=== PATIENT | male | born 1975 | race Caucasian/White ===

== ENCOUNTER 2018-05-20 19:21 | Inpatient (IN) ==
[2018-05-20 20:59] LABS: BASO# 0.04 X1000 (0.0-0.2); BASO% 0.3 % (0.0-0.8); EOS# 0.11 X1000 (0.0-0.7); EOS% 0.8 % (0.0-10.0); HEMATOCRIT 43.8 % (42.0-52.0); IMM GRAN# 0.03 X1000 (0.0-0.04); IMM GRAN% 0.2 % (0.0-0.5); MCH 32.6 PG (27-31); MCHC 34.2 g/dL (33-37); MCV 95.2 FL (81-99); MONO# 0.78 X1000 (0.11-0.59); MONO% 5.9 % (1.7-9.3); MPV 9.8 FL (7.4-10.4); NEUT# 11.17 X1000 (1.4-6.5); NEUT% 83.8 % (42.2-75.2); PLT 274 X1000 (130-400); RDW 12.7 % (11.5-14.5); WBC 13.33 X1000 (4.8-10.8)
[2018-05-20] MEDS ORDERED: ZOFRAN IV ONE (21:00)
[2018-05-20] MEDS ORDERED: DILAUDID IV ONE ×2 (21:00→21:58)
[2018-05-20 21:02] LABS: BILIRUBIN URINE NEGATIVE (NEGATIVE); BLOOD URINE TRACE (NEGATIVE); CLARITY CLEAR (CLEAR); COLOR YELLOW; GLUCOSE URINE NEGATIVE (NEGATIVE); KETONE URINE 3+(Large) mg/dL (NEGATIVE); LEUKOCYTES URINE TRACE (NEGATIVE); NITRITE URINE NEGATIVE (NEGATIVE); PROTEIN URINE NEGATIVE (NEGATIVE); SP GRAVITY URINE 1.015; URINE SOURCE CLEAN CATCH; UROBILINOGEN URINE 1 mg/dL
[2018-05-20 21:07] LABS: URINE BACTERIA NEGATIVE /HFP; URINE CAST NONE SEEN /LPF; URINE CRYSTAL NONE SEEN /HPF; URINE EPITHELIAL CELLS <10 /HPF (<10); URINE RBC <10 /HPF (<10); URINE SMALL ROUND CELLS TRANSITIONAL PRESENT; URINE WBC <10 /HPF (<10); URINE YEAST NONE SEEN /HPF
[2018-05-20 21:26] LABS: AGAP 14; ALBUMIN 4.5 g/dL (3.5-5.0); ALKALINE PHOSPHATASE 67 U/L (32-122); BUN 18 mg/dL (8-22); CALCIUM 9.1 mg/dL (8.8-10.2); CHLORIDE 102 mmol/L (98-107); COSMO 282; CREATININE 0.8 mg/dL (0.7-1.2); ESTIMATED GFR > 60; GLUCOSE 147 mg/dL (70-104); GOT 19 U/L (10-34); GPT 22 U/L (10-44); LIPASE 27 U/L (13-60); POTASSIUM 3.8 mmol/L (3.5-5.1); SODIUM 139 mmol/L (136-145); TCO2 23 mmol/L (25-35); TOTAL PROTEIN 7.7 g/dL (6.3-8.3)
[2018-05-20] MEDS ORDERED: ZOSYN 3.375 GM in NS 50 ML IV ONE (22:14)
--- NOTE | 2018-05-20 22:14 | Diag Imaging Result Doc PS360 ---
CT ABD/PELVIS W/IV CONT ONLY - 05/20/2018 INDICATION: nausea,vomiting, diarrhea COMPARISON: None FINDINGS: The lung bases are clear and the heart size is normal. The vermiform appendix is extremely dilated and fluid-filled and there are some appendicoliths at the mouth of the appendix. There is some surrounding inflammation. No free air or free fluid. No bowel obstruction. There are small cysts in the liver and both kidneys. Otherwise abdominal organs are all normal. Urinary bladder, prostate, and rectum are normal. IMPRESSION: Acute appendicitis. This report was discussed with Dr. Myers on 05/20/2018 at 10:10 PM and was readback. This exam was performed using automated exposure control, adjustment of mA or kV according to patient size, and/or use of iterative reconstruction technique Electronically signed by Alex Alfonso 05/20/2018 10:12 PM
[2018-05-20] MEDS ORDERED: NS 1,000 ML IV ONE (22:16)
--- NOTE | 2018-05-20 22:22 | PROVIDER DOCUMENTATION ---
This chart was entered by Jessica Leary Scribe, acting as scribe for James Myers MD. HPI-Abdominal Pain/GI Problem - General Chief Complaint: Abdominal Pain Stated Complaint: N/V, ABD PAIN Time Seen by Provider: 05/20/18 20:59 Source: patient Allergies/Adverse Reactions: Patient Allergies Allergy/AdvReac Type Severity Reaction Status Date / Time No Known Allergies Allergy Verified 05/20/18 20:53 Home Medications: Home Medication List Medication Instructions Recorded Confirmed Last Taken Type NK [No Home Medications] 05/20/18 05/20/18 Unknown History - History of Present Illness-ABD Nature of Presenting Problems: pt is a 43 yr old male presenting with diffuse abdominal pain onset 1400 today, pt also admits nausea, vomiting, denies diarrhea but does report several soft stools since pain onset. pt denies fever/chills, no one else in home sick Abdominal Pain Onset Location: reports: generalized abdomen Pain Radiation: reports: no radiation Quality of Pain: reports: sharp Severity in ED: reports: severe Onset/Duration: reports: this afternoon (1400) Timing: reports: still present Activities at Onset: reports: light activity Exposure to sick contacts?: No Modifying Factors: improves with: other medication (pepto bismal, tums- no relief) Associated Symptoms: reports: nausea, vomiting. denies: constipation, diarrhea, fever/chills Last BM: this evening Dark Stools Present?: reports: none noticed Rectal Bleeding: reports: none Rectal Pain: reports: none # of Vomiting Episodes: 5 Bruising or Bleeding Gums?: No Similar Symptoms Previously?: No Recently seen or treated by another doctor?: No Review of Systems - Adult - REVIEW OF SYSTEMS - ADULT Constitutional: denies: chills, fever Eyes: reports: no symptoms reported Ears, Nose, Mouth & Throat: reports: no symptoms reported Cardiovascular: denies: chest pain, palpitations, syncope Respiratory: denies: cough, shortness of breath Gastrointestinal: reports: abdominal pain, nausea, vomiting. denies: constipation, diarrhea Genitourinary: denies: dysuria, frequency, flank pain Musculoskeletal: denies: back pain, muscle aches, neck pain Integumentary: reports: no symptoms reported Neurological: denies: dizziness/vertigo, headache/migraines Psychiatric: reports: no symptoms reported Endocrine: reports: no symptoms reported Hematologic/Lymphatic: reports: no symptoms reported Allergic/Immunologic: reports: no symptoms reported All Other Systems: Reviewed and Negative Past History - Adult - PAST MEDICAL HISTORY-ADULT Review of Records: reports: Nursing Assessment Review, Medications Reviewed, Social history reviewed & non-contributory. Major Childhood Illnesses: reports: denies history Cardiovascular: reports: denies history Respiratory: reports: denies history Gastrointestinal: reports: denies history Obstetrical/Gynecological: reports: denies history Genitourinary: reports: denies history Musculoskeletal: reports: denies history Neurological: reports: denies history Endocrine/Immune: reports: denies history Other Conditions: reports: denies history - IMMUNIZATION STATUS Childhood Immunizations: See Nurse Assessment Flu Vaccine: See Nurse Assessment - FAMILY HISTORY Family History: reviewed, not pertinent - SOCIAL HISTORY Smoking: denies Substance Use: alcohol Alcohol Use Frequency: occasionally Living Situation: family Physical Exam-General - PHYSICAL EXAM-ADULT Initial Vital Signs Reviewed: Yes - CONSTITUTIONAL General Appearance: alert, moderate distress, other (pt obviously uncomfortable, shaking/twisting in bed, unable to lie still) - EYES Eyes: PERRL/EOMI - HEAD, EARS, NOSE, MOUTH & THROAT HENMT: normocephalic/atraumatic, moist mucous membranes, normal ENT inspection - NECK Neck: non-tender, full range of motion, supple, normal inspection - RESPIRATORY Respiratory: lungs clear, normal breath sounds - CARDIOVASCULAR Cardiovascular: normal peripheral pulses, regular rate, rhythm, no edema - GASTROINTESTINAL (ABDOMEN) Abdominal Exam: abnormal bowel sounds (decreased bowel sounds), tenderness (marked central abdominal tenderness) - LYMPHATIC Lymphatic: no adenopathy - MUSCULOSKELETAL Back Exam: normal inspection, no CVA tenderness, no vertebral tenderness Extremity: normal range of motion, non-tender, normal gait, normal inspection - SKIN Integumentary: normal color, normal turgor, warm/dry - NEUROLOGIC Neurologic: grossly normal, no motor/sensory deficits Progress - PLAN OF CARE/RESULTS Progress/Plan/Lab Results: Vital Signs - 8 hr 05/20/18 19:26 Temperature 97.1 F L Pulse Rate 69 Respiratory Rate 16 Blood Pressure 138/79 O2 Sat by Pulse Oximetry 100 Laboratory Results - last 24 hr 05/20/18 05/20/18 20:32 20:37 WBC 13.33 H RBC 4.60 L Hgb 15.0 Hct 43.8 MCV 95.2 MCH 32.6 H MCHC 34.2 RDW Std Deviation 12.7 Plt Count 274 MPV 9.8 Immature Gran % (Auto) 0.2 Neut % (Auto) 83.8 H Lymph % (Auto) 9.0 L Evans % (Auto) 5.9 Eos % (Auto) 0.8 Baso % (Auto) 0.3 Immature Gran # (Auto) 0.03 Neut # (Auto) 11.17 H Lymph # (Auto) 1.20 Evans # (Auto) 0.78 H Eos # (Auto) 0.11 Baso # (Auto) 0.04 Urine Source CLEAN CATCH Urine Color YELLOW Urine Clarity CLEAR Urine pH 7.0 Ur Specific [place] 1.015 Urine Protein NEGATIVE Urine Ketones 3+(Large) A Urine Blood TRACE Urine Nitrite NEGATIVE Urine Bilirubin NEGATIVE Urine Urobilinogen 1 Urine Microscopic RBC <10 Urine WBC TRACE A Urine Microscopic WBC <10 Ur Epithelial Cells <10 Urine Crystals NONE SEEN Small Round Cells TRANSITIONAL PRESENT Urine Bacteria NEGATIVE Urine Casts NONE SEEN Urine Yeast NONE SEEN Urine Glucose NEGATIVE Orders Category Date Time Status Saline Loc DIRECTED Care 05/20/18 19:31 Active NPO Diet 05/20/18 19:31 Active AMYLASE [CHEM] Stat Lab 05/20/18 20:37 Received CBC WITH ELECTRONIC DIFF [HEME] Stat Lab 05/20/18 20:37 Completed COMPREHENSIVE METABOLIC PANEL [CHEM] Stat Lab 05/20/18 20:37 Received LIPASE [CHEM] Stat Lab 05/20/18 20:[address] W/POSS RFLX CULT [URINALYSIS] Stat Lab 05/20/18 20:32 Completed URINE CULTURE [RM] Routine Lab 05/20/18 21:07 Ordered Hydromorphone [Dilaudid] Med 05/20/18 21:00 Discontinued 1 mg IV NOW ONE Ondansetron [Zofran] Med 05/20/18 21:00 Discontinued 4 mg IV NOW ONE Result Diagrams: 05/20/18 20:37 05/20/18 20:37 - CT/MRI 1 CT Study: Abdomen, Pelvis CT Results: acute appendicitis, report given by Dr. Alfonso at 2210 - CONSULTS/PCP/HOSPITALIST Notification #1 *Consult/PCP/Hospitalist*: Dr. Qiu, surgeon Time Discussed: 22:15 Reason/Comments: admit to [facility], start Zosyn IV Consult Disposition: Admit Departure - Departure Date of Disposition Decision: 05/20/18 Time of Disposition Decision: 22:15 DIAGNOSIS: Acute appendicitis Qualifiers: Acute appendicitis type: unspecified acute appendicitis type Qualified Code(s): K35.80 - Unspecified acute appendicitis Disposition: ADMITTED INPATIENT 09 Certified Medical Emergency: Emergent Condition: Stable Referrals and Follow-Ups: None,PCP [Primary Care Provider] - - Critical Care Note This patient required my direct & personal management of CC.: Yes Total Time (mins): 125 Critical Care Statement: This patient required my direct personal management to treat or rule out processes, the absence of which, could potentiallly result in sudden, clinically significant life or limb threatening deterioration. Attestation - Physician/ KAREN Attestation Patient care was provided by Advanced Practice Provider:: No The physician spent face to face time with patient:: Yes Advanced Practice Provider documentation review:: Supervising physician onsite and consulted in the evaluation and care of this patient. The physician did have a face to face encounter with the patient. This chart was documented by the indicated scribe, (Jessica Leary Scribe) and accurately reflects the services I performed and decisions made by me, James Myers MD, as attested by the provider's signature.
[2018-05-21] MEDS: ZOFRAN IV PRN ×2 (00:22→06:21)
[2018-05-21] MEDS: MORPHINE IV PRN ×4 (00:22→09:10)
--- NOTE | 2018-05-21 06:30 | HISTORY AND PHYSICAL ---
Mr. Stratton says that he felt normal yesterday morning. After lunch, he started having some abdominal pain. He first thought it was just a sick stomach and he took Pepto-Bismol and an antacid but that did not improve and his pain progressed and he sought medical attention last night. CT scan showed acute appendicitis. Denies any fever or chills. Denies any similar previous illness. He denies any other significant medical history. Takes no scheduled medications. ALLERGIES: He has no known drug allergies. FAMILY HISTORY: Noncontributory. SOCIAL HISTORY: He uses alcohol occasionally. Denies smoking. Denies illicit drug use. He is . REVIEW OF SYSTEMS: Negative in every subsystem except for his GI tract for which he presents today. PHYSICAL EXAMINATION: VITAL SIGNS: He is afebrile. Heart rate 82, blood pressure 153/87, respiratory rate 22. NECK: No cervical adenopathy. LUNGS: Bilateral breath sounds are present. HEART: Regular rate and rhythm. ABDOMEN: Soft. He has right-sided abdominal tenderness. EXTREMITIES: No peripheral edema. Pedal pulses are present. NEUROLOGICAL: He is awake and alert. DIAGNOSTICS/[place]: [place] [address]. ASSESSMENT: Acute appendicitis. PLAN: Laparoscopic appendectomy. I have discussed this with him. He understands and agrees to proceed. cc: Roberto Qiu MD
[2018-05-21] MEDS ORDERED: LR 1,000 ML ONE (10:40)
[2018-05-21] MEDS ORDERED: SENSORCAINE-MPF 0.5%/EPI 1:200,000 ONE (10:40)
[2018-05-21] MEDS ORDERED: ZOSYN 3.375 GM in NS 50 ML IV ONE (11:00)
[2018-05-21] MEDS ORDERED: NORCO-10 PO ONE (11:39)
[2018-05-21 11:45] LABS: URINE SOURCE CATH
[2018-05-21] MEDS ORDERED: NS 1,000 ML IV SCH (11:45)
[2018-05-21] MEDS ORDERED: VERSED ONE (11:51)
[2018-05-21] MEDS ORDERED: FENTANYL ONE (11:52)
[2018-05-21] MEDS ORDERED: DIPRIVAN 1% ONE (11:52)
[2018-05-21 11:53] LABS: BILIRUBIN URINE NEGATIVE (NEGATIVE); BLOOD URINE TRACE (NEGATIVE); COLOR YELLOW; GLUCOSE URINE NEGATIVE (NEGATIVE); KETONE URINE 20 mg/dL (NEGATIVE); LEUKOCYTES URINE NEGATIVE (NEGATIVE); NITRITE URINE NEGATIVE (NEGATIVE); PH URINE 6.5; PROTEIN URINE NEGATIVE (NEGATIVE); SP GRAVITY URINE 1.026; TURBIDITY URINE CLEAR (CLEAR); UROBILINOGEN URINE NORMAL (NORMAL)
[2018-05-21 11:54] LABS: UR EPITHELIAL CELLS >10 /HPF (<10); URINE BACTERIA NEGATIVE /HPF; URINE RBC <10 /HPF (<10); URINE WBC <10 /HPF (<10)
[2018-05-21] MEDS ORDERED: NS 1,000 ML ONE (12:05)
[2018-05-21] MEDS: ZOSYN 3.375 GM in NS 50 ML IV SCH ×3 (12:24→22:38)
--- NOTE | 2018-05-21 13:13 | OPERATIVE NOTE ---
PROCEDURE DATE: 05/21/2018 PROCEDURE PERFORMED: Laparoscopic appendectomy. SURGEON: Roberto Qiu MD. RN CALL CENTER: [facility]. PREOPERATIVE DIAGNOSIS: Acute appendicitis. POSTOPERATIVE DIAGNOSIS: Acute appendicitis. DESCRIPTION OF PROCEDURE: Satisfactory general endotracheal anesthesia. The abdomen was prepped and draped in a sterile fashion. We anesthetized the skin in the umbilicus, incised the skin, introduced a 5 trocar under Optiview technique. We insufflated through this trocar. Under direct visualization, introduced a 12 trocar in the lower hypogastrium and a 5 trocar in the right lower quadrant. We placed the patient in Trendelenburg and turned him to the left. The appendix was identified at the base of the cecum. It extended cephalad and, in the retroperitoneum we used the LigaSure to divide the tissue around the appendix. We grasped the mesoappendix, lifted it up and continued to divide the attachments to the appendix until we reached the base of the mesoappendix. We then introduced the Endo-EULALIA webster cartridge 45 mm long. We passed it across the base of the appendix, stapled and divided the base of the appendix. We placed the appendix within a Pleatman pouch, delivered out of the abdominal cavity through the 12 trocar. We looked back. Hemostasis was satisfactory. There was no evidence of leak. Flattened the patient. We desufflated and removed our trocars. We placed a 2-0 Polysorb in the fascia at the lower hypogastric trocar site. We then closed the skin at each incision with 4-0 Polysorb subcuticular stitches. Sterile OpSites were applied. He tolerated it well. Was sent to the recovery room in satisfactory condition. cc: Roberto Qiu MD
[2018-05-21] MEDS: DILAUDID IV PRN ×2 (17:33→21:24)
[2018-05-21] MEDS: PERIDEX MT SCH (21:33)
[2018-05-22] MEDS: DILAUDID IV PRN ×2 (02:46→08:58)
[2018-05-22 07:34] VITALS: BP 117/68
[2018-05-22] MEDS: PERIDEX MT SCH (08:58)
--- NOTE | 2018-05-22 10:17 | GENERAL SURGERY PROGRESS NOTE ---
DATE: 05/22/2018 SUBJECTIVE: Mr. Zaragoza is doing well. He feels much better. He has taken liquids no problem. RECOMMENDATIONS: 1. We will let him go home today. 2. We will write him something for pain. 3. He is in the [place]. He will follow up with the [place] physician Nisa next Friday. 4. He will call me if he has any concerns when he gets back into [place]. If he has a wound problem he will be he will come back and see me at the end of next week. cc: Roberto Qiu MD
== END 2018-05-22 10:50 | disposition home or self-care (01) | DRG 343 ==
LOC: 4N 19:21 → P.ED 19:21 → OPS 22:50 → DIRADM 22:51 → 4N 23:25 → OPS 05-22 10:49
PROVIDERS: ADMIT Surgery; ATTEND Surgery
CPT/HCPCS: 74177; 80053; 81001; 82150; 83690; 85025; 87088; 88304; 94760; 94799; 96361; 96374; 96375; 96376; 99285; 99291; A9270; J1170; J2250; J2270; J2405; J2543; J3010; J7030; J7120; Q9967